=== PATIENT | female | born 1995 | race Caucasian/White ===

== ENCOUNTER 2018-02-19 07:30 | Inpatient (IN) | payer BC ==
[~2018-02-19] VITALS: Ht 154.9 cm; Wt 97.3 kg
[2018-02-19] VITALS (8 sets, daily range): BP systolic 103–130; BP diastolic 61–87; PULSE 83–108; TEMP 98.3–98.5
[~2018-02-19 07:30] MED LIST: PERCOCET 325 MG1 TA2 PO; TIROSINT25 MC1 PO
[2018-02-19] MEDS ORDERED: PRENATAL VITAMI1 TA3 PO (20:01)
[2018-02-19 20:14] LABS: BASO % 0.4 % (0.0-2.0); EOS # 0.2 (0.0-0.7); EOS % 1.4 % (0-4.0); GRAN # 6.8 (1.4-6.5); GRAN % 61.6 % (42.2-75.2); HEMATOCRIT 37.2 % (37.0-47.0); HEMOGLOBIN 12.5 g/dl (12.5-16.0); LYMPH # 3.3 (1.2-3.4); LYMPH % 30.2 % (20.0-51.0); MEAN CELL VOLUME 85 fl (80.0-100.0); MEAN CORPUSCULAR HEMOGLOBIN 29 pg (27.0-31.0); MEAN CORPUSCULAR HGB CONC 34 g/dl (33.0-37.0); MEAN PLATELET VOLUME 11.2 fl (7.4-10.4); MONO # 0.6 (0.1-0.6); MONO % 5.5 % (1.7-9.3); PLATELET COUNT 214 K/mm3 (130-400); RED BLOOD COUNT 4.38 M/mm3 (4.10-5.30); REDCELL DISTRIBUTION WIDTH-CV 13.5 % (11.5-14.5)
[2018-02-20] VITALS (67 sets, daily range): BP systolic 90–155; BP diastolic 51–821; PULSE 73–113; TEMP 98.1–98.7
[2018-02-21] VITALS (20 sets, daily range): BP systolic 85–136; BP diastolic 50–96; PULSE 84–112; TEMP 97.9–98.7
[2018-02-21 10:47] LABS: BASO % 0.3 % (0.0-2.0); EOS # 0.1 (0.0-0.7); EOS % 0.5 % (0-4.0); GRAN # 10.2 (1.4-6.5); GRAN % 78.8 % (42.2-75.2); LYMPH # 1.9 (1.2-3.4); LYMPH % 14.4 % (20.0-51.0); MEAN CELL VOLUME 86 fl (80.0-100.0); MEAN CORPUSCULAR HGB CONC 33 g/dl (33.0-37.0); MEAN PLATELET VOLUME 10.6 fl (7.4-10.4); MONO # 0.7 (0.1-0.6); MONO % 5.5 % (1.7-9.3); PLATELET COUNT 197 K/mm3 (130-400); RED BLOOD COUNT 3.53 M/mm3 (4.10-5.30); REDCELL DISTRIBUTION WIDTH-CV 13.6 % (11.5-14.5)
[2018-02-21 10:59] LABS: HEMATOCRIT 30.3 % (37.0-47.0); HEMOGLOBIN 10.1 g/dl (12.5-16.0); MEAN CORPUSCULAR HEMOGLOBIN 29 pg (27.0-31.0)
[2018-02-22 08:20] VITALS: BP 16/74; PULSE 112; TEMP 97.9
[2018-02-22] MEDS ORDERED: IBU600 MG PO (12:39)
[2018-02-22] MEDS ORDERED: PERCOCET 325 MG1 TA2 PO (12:39)
[2018-02-22 22:00] VITALS: BP 114/70; PULSE 101; TEMP 98.4
[2018-02-23 07:15] VITALS: BP 108/77; PULSE 101; TEMP 97.9
== END 2018-02-23 09:55 | disposition home or self-care (01) | DRG 787 ==
LOC: LDR 07:30 → OB 02-21 04:05
PROVIDERS: Obstetrics & Gynecology
PROC: 3E0P7VZ Introduction of Hormone into Female Reproductive, Via Natural or Artificial Opening (ICD-10-PCS; 2018-02-19)
PROC: 3E033VJ Introduction of Other Hormone into Peripheral Vein, Percutaneous Approach (ICD-10-PCS; 2018-02-20)
PROC: 10907ZC Drainage of Amniotic Fluid, Therapeutic from Products of Conception, Via Natural or Artificial Opening (ICD-10-PCS; 2018-02-20)
PROC: 10D00Z1 Extraction of Products of Conception, Low, Open Approach (ICD-10-PCS; principal; 2018-02-21)
DX: O48.0 Post-term pregnancy (principal); D62 Acute posthemorrhagic anemia; Z3A.40 40 weeks gestation of pregnancy; Z37.0 Single live birth; O62.1 Secondary uterine inertia; O99.214 Obesity complicating childbirth; O99.284 Endocrine, nutritional and metabolic diseases complicating childbirth; E03.9 Hypothyroidism, unspecified; O62.2 Other uterine inertia; O90.81 Anemia of the puerperium
CPT/HCPCS: J0690; J1885; J2405; J2590; J2704; J2795; J7120